=== PATIENT | female | born 1990 | race Caucasian/White ===

== ENCOUNTER 2018-10-31 01:40 | Inpatient (IN) | payer OTHER ==
[2018-10-31] MEDS: ELECTROLYTE-148 SOLN 1,000 ML IV SCH (02:20)
[2018-10-31 02:43] LABS: MONO % 6.3 % (3.8-10.2); PLATELET COUNT 230 K/MM3 (134-434)
[2018-10-31] MEDS ORDERED: FENTANYL/BUPIVACAINE/NS/PF - PCEA - 50 ML DISP.SYRIN EP ONE ×2 (02:47→08:00)
--- NOTE | 2018-10-31 02:52 | HP ---
Past Medical History - Primary Care Physician PCP:: Sesar Rubalcava - Admission Chief Complaint: 28yo P0 with at EGA 38w6d damitted with spontaneous labor and SROM since 12am. History of Present Illness: SROM with clear fluid at 12am on 10/31/2018 Painful ctx from 1am Rh Negative Vaginal GBS negative History Source: Patient, Medical Record Limitations to Obtaining History: No Limitations - Past Medical History RESERVATIONS AGENT: No: Alzheimer's, CVA, Dementia, Migraine, Multiple Sclerosis, Peripheral Neuropathy, Parkinson's, Seizure, Syncope, TIA, Vertigo, Other Cardiovascular: No: AFIB, Aneurysm, Aortic Insufficiency, Aortic Stenosis, CAD, CHF, Deep Vein Thrombosis, HTN, Hyperlipdemia, DC, Mitral Insufficiency, Mitral Stenosis, Murmur, Pulmonary Hypertension, Other Pulmonary: No: Asthma, Bronchitis, Cancer, COPD, O2 Dependent, Pneumonia, Previously Intubated, Pulmonary Embolus, Pulmonary Fibrosis, Sleep Apnea, Other Gastrointestinal: Yes: GERD Hepatobiliary: No: Cirrhosis, Cholelithiasis, Cholecystitis, Choledocholithiasis , Hepatitis A, Hepatitis B, Hepatitis C, Other Renal/: Yes: Renal Calculi ...: 1 ...Para: 0 ... Weeks Gestation by Dates: 38.6 ...EDC by Sono: 11/08/18 Heme/Onc: No: Anemia, B12 Deficiency, Bleeding Disorder, Cancer, Current Chemotherapy, Current Radiation Therapy, Hemochromatosis, Hypercoaguable State, Myeloproliferative Synd, Sickle Cell Disease, Sickle Cell Trait, Thrombocytopenia, Other Infectious Disease: No: AIDS, C-Diff, Herpes Zoster, HIV, MRSA, STD's, Tuberculosis, VREF, Other Psych: No: Addictions, Anxiety, Bipolar, Depression, Panic, Psychosis, Schizophrenia, Other Musculoskeletal: No: Bursitis, Chronic low back pain, Hemiparesis, Hemiplegia, Osteoarthritis, Paraplegia, Other Rheumatology: No: Fibromyalgia, Gout, Lupus, Rheumatoid Arthritis, Sarcoidosis, Vasculitis, Other ENT: No: Allergic Rhinitis, Sinusitis, Other Endocrine: No: Paolo's Disease, Mikki's Disease, Diabetes Insipidus, Diabetes Mellitus, Hyperparathyroidism, Hyperthyroidism, Hypothyroidism, Osteopenia, SIADH, Other Dermatology: No: Basal Cell, Cellulitis, Eczema, Melanoma, Psoriasis, Squamous Cell, Other - Past Surgical History Past Surgical History: Yes: None, Tonsillectomy Hx Myomectomy: No Hx Transabdominal Cerclage: No - Smoking History Have you smoked in the past 12 months: No - Alcohol/Substance Use Hx Alcohol Use: No History of Substance Use: reports: None - Social History Usual Living Arrangement: Yes: With Spouse ADL: Independent Occupation: Teacher History of Recent Travel: No Home Medications - Allergies Allergies/Adverse Reactions: Allergies Allergy/AdvReac Type Severity Reaction Status Date / Time No Known Allergies Allergy Verified 10/31/18 02:16 - Home Medications Home Medications: Ambulatory Orders Vitamins (Sjr) - 1 tab PO DAILY 10/12/18 Doxylamine Succinate [Unisom Sleep Aid] 25 mg PO HS 10/31/18 Family Disease History - Family Disease History Family Disease History: CA: Mother (oral cancer) Review of Systems - Review of Systems Constitutional: reports: Other (labor pain) Eyes: reports: No Symptoms HENT: reports: No Symptoms Neck: reports: No Symptoms Cardiovascular: reports: No Symptoms Respiratory: reports: No Symptoms Gastrointestinal: reports: No Symptoms Genitourinary: reports: No Symptoms Breasts: reports: No Symptoms Reported Musculoskeletal: reports: No Symptoms Integumentary: reports: No Symptoms Neurological: reports: No Symptoms Endocrine: reports: No Symptoms Hematology/Lymphatic: reports: No Symptoms Psychiatric: reports: No Symptoms Pain Intensity: 9 Physical Exam - Maternity Constitutional: Yes: Well Nourished, No Distress, Calm Eyes: Yes: WNL, Conjunctiva Clear HENT: Yes: WNL, Atraumatic, Normocephalic Neck: Yes: WNL, Supple, Trachea Midline Cardiovascular: Yes: WNL, Regular Rate and Rhythm Lungs: Clear to auscultation, Normal air movement Breast(s): Yes: WNL - Abdominal Exam/OB Fundal Height: 39 Number of Fetuses: Single Presentation: Vertex Contractions: Yes Regularity: Regular Intensity: Mod/Strong Monitor Mode: External Heart Rate (range): 125 Heart Rate Location: Midline Category: I Accelerations: Uniform Decelerations: None - Vaginal Exam/OB Vaginal Bleediing: No Speculum Exam: No Dilatation (cm): 3 Effacement (%): 90 Amniotic Membrane Status: Leaking Nitrazine Test: Positive Amniotic Fluid: Yes: Clear Presentation: Vertex/Position Station: -3 - Physical Exam Musculoskeletal: Yes: WNL Extremities: Yes: WNL Edema: No Integumentary: Yes: WNL Deep Tendon Reflex Grade: Normal +2 ...Motor Strength: WNL Psychiatric: Yes: WNL, Alert, Oriented Hemorrhage Risk Assessment - Risk Factors Medium Risk Factors: Yes: None High Risk Factors: Yes: None Risk Score: 1 Risk Level: Medium Risk Imaging - Results Ultrasound: Report Reviewed Assessment/Plan 28yo P0 with at EGA 38w6d damitted with spontaneous labor and SROM since 12am. Fetus with Category I tracing Labor spontaneous, in latent phase. Plan to admit. Labs IV fluids. Pt requested epidural Monitor labor progress.
[2018-10-31 03:10] LABS: BLOOD UREA NITROGEN 15.2 mg/dL (7-18); CALCIUM 9.3 mg/dL (8.5-10.1); CREATININE 0.6 mg/dL (0.55-1.3); POTASSIUM 3.9 mmol/L (3.5-5.1)
[2018-10-31 03:11] LABS: BASO % 0.3 % (0-2.0); EOS % 0.7 % (0-4.5); HEMATOCRIT 37.2 % (32.4-45.2); HEMOGLOBIN 12.9 GM/dL (10.7-15.3); LYMPH % 16.8 % (8-40); MCH 32.1 pg (25.7-33.7); MCHC 34.8 g/dl (32.0-36.0); MEAN CELL VOLUME 92.3 fl (80-96); MEAN PLT VOLUME 9.9 fl (7.5-11.1); NEUT % 75.9 % (42.8-82.8); RBC 4.03 M/mm3 (3.60-5.2); RDW 13.3 % (11.6-15.6); WHITE BLOOD COUNT 14.9 K/mm3 (4.0-10.0)
[2018-10-31 03:25] LABS: INR 0.85 (0.83-1.09)
[2018-10-31 03:28] LABS: ACTIVATED PTT 27.1 SECONDS (25.2-36.5)
[2018-10-31] MEDS: FENTANYL/BUPIVACAINE/NS/PF - PCEA - 50 ML DISP.SYRIN EP SCH (03:30)
[2018-10-31 04:37] VITALS: BMI 29.2
[2018-10-31] MEDS ORDERED: NALOXONE HCL 0.4 MG/ML VIAL IVPUSH PRN (05:15)
[2018-10-31] MEDS ORDERED: LIDO 2%/EPI 1:200000 PRESRVFRE (20 ML SDVIAL) ONE (06:50)
[2018-10-31] MEDS ORDERED: OXYTOCIN 20 UNITS in 0.9% NS 20 UNIT/1,000 ML INFUS.BAG IV ONE (07:15)
[2018-10-31] MEDS: ACETAMINOPHEN 325 MG TABLET (FP) PO PRN ×4 (07:45→20:45)
[2018-10-31] MEDS ORDERED: ACETAMINOPHEN 325 MG TABLET (FP) ONE ×2 (07:45→10:57)
--- NOTE | 2018-10-31 08:24 | PN ---
Ante-Partal Exam - Subjective Subjective: Pt is feeling some pelvic pressure. Vital Signs: Vital Signs Temperature 98.4 F 10/31/18 08:00 Pulse Rate 93 H 10/31/18 07:45 Respiratory Rate 18 10/31/18 07:45 Blood Pressure 133/86 10/31/18 07:45 O2 Sat by Pulse Oximetry (%) 95 10/31/18 07:45 Bleeding: No Headache: No Visual changes: No Right upper quadrant pain: No Pain (scale 1-10): 1 - Contractions Contractions: Yes Intensity: Unaware Monitor Mode: External - Exam during Labor Heart Rate: 120 Variability: Moderate Heart Rate Location: Midline Category: I Monitor Accelerations: Present Monitor Decelerations: None Exam: Vaginal Dilatation (cm): 9.5 Effacement (%): 100 Amniotic Membrane Status: Leaking Amniotic Fluid: Clear Presentation: Vertex Station: +1 - Intrapartum Hemorrhage Risk Medium Risk Factors: None High Risk Factors: None Risk Score: 0 Risk Level: Low Risk - Assessment/Plan Assessment/Plan: 28yo P0 with at EGA 39wks with spontaneous labor. Fetus with Category I tracing. Labor progressed to active phase. Plan to monitor.
[2018-10-31] MEDS ORDERED: LIDOCAINE HCL 1% PRESERVATIVE FREE - 30ML VIAL ONE (09:06)
[2018-10-31] MEDS: OXYTOCIN 20 UNITS in 0.9% NS 20 UNIT/1,000 ML INFUS.BAG IV SCH ×2 (10:00→16:00)
[2018-10-31] MEDS ORDERED: BISACODYL 10 MG SUPP.RECT RC PRN (10:25)
[2018-10-31] MEDS ORDERED: WITCH HAZEL 50% (TUCKS) 40 PAD/JAR PAD TP PRN (10:25)
[2018-10-31] MEDS ORDERED: METHYLERGONOVINE MALEATE 0.2 MG/1 ML AMP IM PRN (10:25)
[2018-10-31] MEDS ORDERED: IBUPROFEN 600 MG TABLET (FP) PO ONE (10:57)
[2018-10-31] MEDS: IBUPROFEN 600 MG TABLET (FP) PO PRN (11:00)
--- NOTE | 2018-10-31 11:05 | PN ---
Delivery - Delivery Vaginal Delivery: No Problems, Spontaneous Type of Anesthesia: Epidural Episiotomy/Laceration: Midline EBL (cc): 300 Delivery, Single - Stages of Labor Date 1st Stage Initiatied: 10/31/18 Time 1st Stage Initiated: 01:00 Date 2nd Stage Initiated: 10/31/18 Time 2nd Stage Initiated: 09:15 Date of Delivery: 10/31/18 Time of Delivery: 09:50 Date Placenta Delivered: 10/31/18 Time Placenta Delivered: 10:00 Placenta: Yes: Spontaneous, Normal Configuration - Condition of Barber Shop Manager/Imaging Tech Present: No Gender: Female Position: Right, OA Total Hours ROM (Hrs/Mins): 10/00 - 1 Minute Total Score: 9 5 Minutes Total Score: 9 - [place] Feeding Plan Initial Plan: Elected not to breastfeed exclusively throughout hospitalization Benefits of Exclusively reinforced: Yes Remarks - Remarks Remarks: Nuchal cord x 1
[2018-10-31] MEDS: oxyCODONE HCL 5 MG TABLET PO PRN ×3 (12:24→20:45)
[2018-10-31] MEDS: BENZOCAINE 20% 57 GM BOTTLE TP PRN (16:36)
[2018-10-31] MEDS: BENZOCAINE 28 GM HEMORRHOIDAL OINTMENT TP PRN (16:36)
[2018-10-31] MEDS: RANITIDINE HCL 150 MG TABLET (FP) PO SCH (21:29)
[2018-10-31] MEDS: SENNOSIDES/DOCUSATE COMBO (SENNA PLUS) TABLET (UD) PO PRN (21:31)
[2018-11-01] MEDS: oxyCODONE HCL 5 MG TABLET PO PRN ×5 (03:01→21:09)
[2018-11-01] MEDS: ACETAMINOPHEN 325 MG TABLET (FP) PO PRN (03:03)
[2018-11-01] MEDS: IBUPROFEN 600 MG TABLET (FP) PO PRN ×4 (08:05→21:08)
[2018-11-01 08:52] LABS: BASO % 0.4 % (0-2.0); EOS % 0.7 % (0-4.5); HEMATOCRIT 34.2 % (32.4-45.2); HEMOGLOBIN 11.9 GM/dL (10.7-15.3); LYMPH % 13.3 % (8-40); MCH 32.2 pg (25.7-33.7); MCHC 34.8 g/dl (32.0-36.0); MEAN CELL VOLUME 92.8 fl (80-96); MEAN PLT VOLUME 9.3 fl (7.5-11.1); MONO % 5.5 % (3.8-10.2); NEUT % 80.1 % (42.8-82.8); PLATELET COUNT 194 K/MM3 (134-434); RBC 3.69 M/mm3 (3.60-5.2); RDW 13.1 % (11.6-15.6); WHITE BLOOD COUNT 13.9 K/mm3 (4.0-10.0)
[2018-11-01] MEDS: ELECTROLYTE-148 SOLN 1,000 ML IV SCH (09:31)
[2018-11-01] MEDS: FENTANYL/BUPIVACAINE/NS/PF - PCEA - 50 ML DISP.SYRIN EP SCH (09:32)
[2018-11-01] MEDS: RANITIDINE HCL 150 MG TABLET (FP) PO SCH ×2 (09:53→21:07)
[2018-11-01] MEDS: PRENATAL VITAMINS W/ FOLIC ACID TABLET (FP) PO SCH (09:53)
[2018-11-01] MEDS: OXYTOCIN 20 UNITS in 0.9% NS 20 UNIT/1,000 ML INFUS.BAG IV SCH (12:09)
[2018-11-01] MEDS: BENZOCAINE 20% 57 GM BOTTLE TP PRN (12:10)
[2018-11-01] MEDS: BENZOCAINE 28 GM HEMORRHOIDAL OINTMENT TP PRN (12:12)
[2018-11-01] MEDS: SENNOSIDES/DOCUSATE COMBO (SENNA PLUS) TABLET (UD) PO PRN (21:07)
--- NOTE | 2018-11-01 21:24 | PN ---
Post Progress Note - Subjective Subjective: Patient without acute complaints. Reports tolerating oral intake without nausea or vomiting. Ambulating without dizziness. Denies fevers or chills. Pain well controlled with oral pain medication. Pumping/breast feeding without issue. Passing flatus Post Day: 1 Type of Delivery: Vital Signs: Vital Signs Temperature 97.8 F 11/01/18 21:10 Pulse Rate 88 11/01/18 21:10 Respiratory Rate 20 11/01/18 21:10 Blood Pressure 135/96 11/01/18 21:10 O2 Sat by Pulse Oximetry (%) 94 L 10/31/18 10:45 Breast Exam: Yes: Soft Uterus: Yes: Fundus Firm, Fundus below umbilicus Abdomen/GI: Yes: Abdomen soft, Passing flatus, Tolerating PO Lochia: Yes: Rubra Lochia, amount: Small Extremities: Yes: Calves non-tender Perineum: Yes: Intact, Episiotomy Activity: Ambulating - Labs Labs: CBC WBC 13.9 K/mm3 (4.0-10.0) H 11/01/18 08:10 RBC 3.69 M/mm3 (3.60-5.2) 11/01/18 08:10 Hgb 11.9 GM/dL (10.7-15.3) 11/01/18 08:10 Hct 34.2 % (32.4-45.2) 11/01/18 08:10 MCV 92.8 fl (80-96) 11/01/18 08:10 MCH 32.2 pg (25.7-33.7) 11/01/18 08:10 MCHC 34.8 g/dl (32.0-36.0) 11/01/18 08:10 RDW 13.1 % (11.6-15.6) 11/01/18 08:10 Plt Count 194 K/MM3 (134-434) 11/01/18 08:10 MPV 9.3 fl (7.5-11.1) 11/01/18 08:10 Absolute Neuts (auto) 11.2 K/mm3 (1.5-8.0) H 11/01/18 08:10 Neutrophils % 80.1 % (42.8-82.8) 11/01/18 08:10 Lymphocytes % 13.3 % (8-40) D 11/01/18 08:10 Monocytes % 5.5 % (3.8-10.2) 11/01/18 08:10 Eosinophils % 0.7 % (0-4.5) 11/01/18 08:10 Basophils % 0.4 % (0-2.0) 11/01/18 08:10 Nucleated RBC % 0 % (0-0) 11/01/18 08:10 Assessment/Plan 28yo P1 s/p , doing well stable, afebrile. Asymptomatic for anemia. care instructions reviewed. Continue routine care. Ambulation encouraged Discharge instruction reviewed.
--- NOTE | 2018-11-01 21:26 | DS ---
Physical Exam-SILK SCREEN PRINTER Vital Signs: Vital Signs Temperature 97.8 F 11/01/18 21:10 Pulse Rate 88 11/01/18 21:10 Respiratory Rate 20 11/01/18 21:10 Blood Pressure 135/96 11/01/18 21:10 O2 Sat by Pulse Oximetry (%) 94 L 10/31/18 10:45 Constitutional: Yes: Well Nourished, No Distress, Calm Eyes: Yes: WNL, Conjunctiva Clear HENT: Yes: WNL, Atraumatic, Normocephalic Neck: Yes: WNL, Supple, Trachea Midline Cardiovascular: Yes: WNL, Regular Rate and Rhythm Respiratory: Yes: WNL, Regular, CTA Bilaterally Gastrointestinal: Yes: WNL, Normal Bowel Sounds, Soft ...Rectal Exam: Yes: Deferred Renal/: Yes: WNL ....Post : Yes: Uterus firm, Uterus non-tender, Slight lochia rubra Breast(s): Yes: WNL Musculoskeletal: Yes: WNL Extremities: Yes: WNL Edema: Yes Edema: LLE: Trace, RLE: Trace Integumentary: Yes: WNL Neurological: Yes: WNL, Alert, Oriented ...Motor Strength: WNL Psychiatric: Yes: WNL, Alert, Oriented Labs: CBC, BMP 11/01/18 08:10 10/31/18 02:30 Delivery - Delivery Vaginal Delivery: No Problems, Spontaneous Type of Anesthesia: Epidural Episiotomy/Laceration: Midline EBL (cc): 300 Delivery, Single - Stages of Labor Date 1st Stage Initiatied: 10/31/18 Time 1st Stage Initiated: 01:00 Date 2nd Stage Initiated: 10/31/18 Time 2nd Stage Initiated: 09:15 Date of Delivery: 10/31/18 Time of Delivery: 09:50 Time Placenta Delivered: 10:00 Placenta: Yes: Spontaneous, Normal Configuration - Condition of Extruder Tender/Road Mender Present: No Infant Gender: Female Weight: 2.722 kg Position: Right, OA Total Hours ROM (Hrs/Mins): 9 HRS - 1 Minute Total Score: 9 5 Minutes Total Score: 9 - [place] Feeding Plan Initial Plan: Elected not to breastfeed exclusively throughout hospitalization Benefits of Exclusively reinforced: Yes Remarks - Remarks Remarks: Nuchal cord x 1 Discharge Summary Reason For Visit: ADMIT LABOR Procedures: Principal: Other Procedures: Repair of midline episiotomy Hospital Course: Normal recovery Condition: Good - Instructions Diet, Activity, Other Instructions: Physical activity Resume your normal everyday activity as tolerated no heavy lifting or exercise until seen by your surgeon. You may walk unlimited benson of and climb stairs. You may resume driving the car when you feel safe and comfortable behind the wheel. No sexual activity as instructed. Wound care If you have a bandage, leave it on, and keep dry for 48-72 hours. After that time discard the outer bandage. If they are tapes on the skin under the out of bandage leave them in place. They will peel off in the next 7 to 10 days. Do Not Peel them off. You may shower the day after surgery. If there are tapes present on the skin, you may shower over them. Diet There are no dietary restrictions. Eat healthy, high-fiber foods. Drink 6 to 8 glasses of liquid each day. This will assist in keeping your bowels are regular. Pain management You may take Tylenol or acetaminophen or Ibuprofen (for example, Motrin, Advil etc.) from my pain prescription medication is ordered should be taken as prescribed for moderate to severe pain. Call MD for any of the following: Severe pain not relieved by medication Fever of 101 or higher Excessive bleeding or drainage on dressing Inability to urinate Referrals: Sesar Rubalcava MD [Staff Physician] - Disposition: HOME - Home Medications Comprehensive Discharge Medication List: Ambulatory Orders Vitamins (Sjr) - 1 tab PO DAILY 10/12/18 Doxylamine Succinate [Unisom Sleep Aid] 25 mg PO HS 10/31/18
[2018-11-02] MEDS: oxyCODONE HCL 5 MG TABLET PO PRN ×3 (02:10→11:09)
[2018-11-02] MEDS: IBUPROFEN 600 MG TABLET (FP) PO PRN (02:11)
[2018-11-02] MEDS: ACETAMINOPHEN 325 MG TABLET (FP) PO PRN ×2 (06:39→12:08)
--- NOTE | 2018-11-02 08:28 | PN ---
Post Progress Note - Subjective Subjective: Pt w/o complaints. Post Day: 2 Type of Delivery: Vital Signs: Vital Signs Temperature 97.8 F 11/01/18 21:10 Pulse Rate 88 11/01/18 21:10 Respiratory Rate 20 11/01/18 21:10 Blood Pressure 135/96 11/01/18 21:10 O2 Sat by Pulse Oximetry (%) 94 L 10/31/18 10:45 Breast Exam: Yes: Soft Uterus: Yes: Fundus Firm, Fundus below umbilicus, Non-tender Abdomen/GI: Yes: Abdomen soft Lochia: Yes: Rubra Lochia, amount: Small Extremities: Yes: Calves non-tender Perineum: Yes: Intact, Episiotomy Activity: Ambulating - Labs Labs: CBC WBC 13.9 K/mm3 (4.0-10.0) H 11/01/18 08:10 RBC 3.69 M/mm3 (3.60-5.2) 11/01/18 08:10 Hgb 11.9 GM/dL (10.7-15.3) 11/01/18 08:10 Hct 34.2 % (32.4-45.2) 11/01/18 08:10 MCV 92.8 fl (80-96) 11/01/18 08:10 MCH 32.2 pg (25.7-33.7) 11/01/18 08:10 MCHC 34.8 g/dl (32.0-36.0) 11/01/18 08:10 RDW 13.1 % (11.6-15.6) 11/01/18 08:10 Plt Count 194 K/MM3 (134-434) 11/01/18 08:10 MPV 9.3 fl (7.5-11.1) 11/01/18 08:10 Absolute Neuts (auto) 11.2 K/mm3 (1.5-8.0) H 11/01/18 08:10 Neutrophils % 80.1 % (42.8-82.8) 11/01/18 08:10 Lymphocytes % 13.3 % (8-40) D 11/01/18 08:10 Monocytes % 5.5 % (3.8-10.2) 11/01/18 08:10 Eosinophils % 0.7 % (0-4.5) 11/01/18 08:10 Basophils % 0.4 % (0-2.0) 11/01/18 08:10 Nucleated RBC % 0 % (0-0) 11/01/18 08:10 Assessment/Plan 28yo P1 s/p , doing well stable, afebrile. Asymptomatic for anemia. care instructions reviewed. Continue routine care. Ambulation encouraged. A few mildly elevated BP's noted. No sx's of PEC. Plan to hold off on meds. Discharge instruction reviewed. F/u in office 1 wk for BP check.
[2018-11-02] MEDS: BENZOCAINE 20% 57 GM BOTTLE TP PRN (09:46)
[2018-11-02] MEDS: BENZOCAINE 28 GM HEMORRHOIDAL OINTMENT TP PRN (09:46)
[2018-11-02] MEDS: RANITIDINE HCL 150 MG TABLET (FP) PO SCH (09:47)
[2018-11-02] MEDS: PRENATAL VITAMINS W/ FOLIC ACID TABLET (FP) PO SCH (09:47)
[2018-11-02 13:41] VITALS: TEMP 98.4
[2018-11-02 13:42] VITALS: BP 135/76; PULSE 73
== END 2018-11-02 12:15 | disposition home or self-care (01) | DRG 807 ==
LOC: JLDR 01:40 → J3W 11:55
PROVIDERS: ADMIT Obstetrics & Gynecology; ATTEND Obstetrics & Gynecology
PROC: 0W8NXZZ Division of Female Perineum, External Approach (ICD-10-PCS; principal; 2018-10-31)
PROC: 10E0XZZ Delivery of Products of Conception, External Approach (ICD-10-PCS; 2018-10-31)
DX: O69.81X0 Labor and delivery complicated by cord around neck, without compression, not applicable or unspecified (principal); Z37.0 Single live birth; O99.02 Anemia complicating childbirth; D64.9 Anemia, unspecified; Z3A.38 38 weeks gestation of pregnancy
CPT/HCPCS: 36415; 59409; 80048; 85025; 85461; 85610; 85730; 86593; 86850; 86870; 86900; 86901; 86902; 86999; 87389

== ENCOUNTER 2018-11-04 19:40 | Emergency (ER) | payer OTHER ==
--- NOTE | 2018-11-04 19:47 | PDOC ---
Rapid Medical Evaluation Time Seen by Provider: 11/04/18 19:45 Medical Evaluation: Allergies Allergy/AdvReac Type Severity Reaction Status Date / Time No Known Allergies Allergy Verified 10/31/18 02:16 11/04/18 19:45 HPI: BARCENAS after epidural PE: No gross deficits ORDERS: Labs Discharge Disposition - Diagnosis Headache - Referrals - Patient Instructions - Post Discharge Activity
[2018-11-04 19:57] VITALS: BMI 26.6
[2018-11-04 21:21] LABS: INR 0.91 (0.83-1.09); PROTHROMBIN TIME (PATIENT) 10.7 SEC (9.7-13.0)
--- NOTE | 2018-11-04 21:21 | PDOC ---
History of Present Illness - General Chief Complaint: Migraine Headache Stated Complaint: BLURRY VISION Time Seen by Provider: 11/04/18 19:45 History Source: Patient Exam Limitations: No Limitations - History of Present Illness Initial Comments: 11/04/18 21:52 28yo F with no significant PMH presenting to ED with complaints of headache x3d. Patient recently gave vaginally 4d ago and received epidural. Per Dr. Barnhart (in ER), anesthesiologist accidentally poked through dura with 17g needle. Patient says the headache is a constant throbbing starting from the back of her neck to the front of the head with neck stiffness on the L side. Also endorses blurry vision of the L eye. Headache is worse when she is standing and walking and lessened when she is laying down. Denies fever, chills , dizziness, lightheadedness, numbness/tingling, weakness, n/v/d, abdominal pain , falls. She is . She had been taking Percocet and drinking water without relief. Past History - Past Medical History Allergies/Adverse Reactions: Allergies Allergy/AdvReac Type Severity Reaction Status Date / Time No Known Allergies Allergy Verified 11/04/18 19:50 Home Medications: Ambulatory Orders Vitamins (Sjr) - 1 tab PO DAILY 10/12/18 Doxylamine Succinate [Unisom Sleep Aid] 25 mg PO HS 10/31/18 Oxycodone HCl/Acetaminophen [Percocet 5-325 mg Tablet -] 1 - 2 tab PO Q6H PRN # 20 tab MDD 8 11/02/18 Asthma: No Cancer: No Cardiac Disorders: No COPD: No Diabetes: No HTN: No Seizures: No Thyroid Disease: No - Suicide/Smoking/Psychosocial Hx Smoking History: Never smoked Have you smoked in the past 12 months: No Information on smoking cessation initiated: No Hx Alcohol Use: No Drug/Substance Use Hx: No Hx Substance Use Treatment: No Review of Systems - Review of Systems Constitutional: No: Symptoms Reported HEENTM: Yes: Blurred Vision Respiratory: No: Symptoms reported Cardiac (ROS): No: Symptoms Reported ABD/GI: No: Symptoms Reported : No: Symptoms Reported Musculoskeletal: Yes: Neck Pain Integumentary: No: Symptoms Reported Neurological: Yes: Headache. No: Numbness, Tingling, Tremors, Weakness, Unsteady Gait *Physical Exam - Vital Signs Last Vital Signs Temp Pulse Resp BP Pulse Ox 97.9 F 82 17 139/91 100 11/04/18 19:47 11/04/18 19:47 11/04/18 19:47 11/04/18 19:47 11/04/18 19:47 - Physical Exam General Appearance: Yes: Nourished, Appropriately Dressed. No: Apparent Distress HEENT: positive: EOMI, DOMINGA Neck: positive: Trachea midline, Supple Respiratory/Chest: positive: Lungs Clear, Normal Breath Sounds. negative: Chest Tender Cardiovascular: positive: Regular Rhythm, Regular Rate. negative: S1, S2, Edema , JVD Vascular Pulses: Dorsalis-Pedis (R): 2+, Doralis-Pedis (L): 2+ Gastrointestinal/Abdominal: positive: Normal Bowel Sounds, Soft. negative: Tender Musculoskeletal: negative: CVA Tenderness Extremity: positive: Normal Capillary Refill, Pelvis Stable. negative: Swelling , Calf Tenderness Integumentary: positive: Normal Color, Dry, Warm Neurologic: positive: validation software facilitator II-XII NML intact, Fully Oriented, Alert, Normal Response, Motor Strength / ED Treatment Course - LABORATORY CBC & Chemistry Diagram: 11/04/18 20:33 11/04/18 20:33 Medical Decision Making - Medical Decision Making 11/04/18 22:00 28yo F with no significant PMH presenting to ED with complaints of headache x3d. Patient recently gave vaginally 4d ago and received epidural. Per Dr. Barnhart (in ER), anesthesiologist accidentally poked through dura with 17g needle. Patient says the headache is a constant throbbing starting from the back of her neck to the front of the head with neck stiffness on the L side. Also endorses blurry vision of the L eye. Headache is worse when she is standing and walking and lessened when she is laying down. Denies fever, chills , dizziness, lightheadedness, numbness/tingling, weakness, n/v/d, abdominal pain , falls. She is . She had been taking Percocet and drinking water without relief. Vitals: wnl PE: normal, photophobia. PDPH. low suspicion for meningitis given negative meningeal signs, no fever, no ams. Anesthesia is placing blood patch. pt layed flat for 1.5 hours. head of bed raised slowly. pt states that dobson was 8/ 10 now 6/10. however neck stiffness adn blurry vision is resolved. appears well, low suspicion for meningitis. giving tylenol, fluids and reglan. pt feeling better, is ambulatory, no headache, no stiffness, no blurry vision. safe for dc home. given return precautions. *DC/Admit/Observation/Transfer Diagnosis at time of Disposition: Post-dural puncture headache - Discharge Dispostion Disposition: HOME Condition at time of disposition: Improved Decision to Admit order: No - Referrals Referrals: Jaquan Thorne [Primary Care Provider] - - Patient Instructions Printed Discharge Instructions: DI for Post-Spinal Puncture Headache Additional Instructions: You were seen in the emergency room today for headache. This is likely a headache from the epidural. You can take Tylenol for the pain as needed. Do not lift heavy items or strain. Drink plenty of fluids and stay hydrated Come back to the emergency room if pain gets worse, you have fever, you have changes in vision, you have numbness/tingling or weakness or if any new, worsening, or concerning symptoms develop. Thank you - Post Discharge Activity
[2018-11-04 21:23] LABS: BASO % 0.5 % (0-2.0); HEMATOCRIT 36.9 % (32.4-45.2); HEMOGLOBIN 12.6 GM/dL (10.7-15.3); LYMPH % 17.8 % (8-40); MCH 31.6 pg (25.7-33.7); MCHC 34.2 g/dl (32.0-36.0); MEAN CELL VOLUME 92.4 fl (80-96); MEAN PLT VOLUME 8.5 fl (7.5-11.1); MONO % 4.7 % (3.8-10.2); PLATELET COUNT 326 K/MM3 (134-434); RDW 13.2 % (11.6-15.6); WHITE BLOOD COUNT 11.7 K/mm3 (4.0-10.0)
[2018-11-04 21:28] LABS: BILIRUBIN,TOTAL 0.2 mg/dL (0.2-1); BLOOD UREA NITROGEN 14.7 mg/dL (7-18); CALCIUM 9.5 mg/dL (8.5-10.1); CREATININE 0.6 mg/dL (0.55-1.3); TOT PROT 7.1 g/dl (6.4-8.2)
--- NOTE | 2018-11-04 22:31 | PDOC ---
Documentation entered by Devante Tirado SCRIBE, acting as scribe for Hakan Camacho MD. Hakan Camacho MD: This documentation has been prepared by the Celestino dykes Daniel, SCRIBE, under my direction and personally reviewed by me in its entirety. I confirm that the documentation accurately reflects all work, treatment, procedures, and medical decision making performed by me. Attending Attestation - Resident Resident Name: Niurka Rucker - ED Attending Attestation I have performed the following: I have examined & evaluated the patient, The case was reviewed & discussed with the resident, I agree w/resident's findings & plan, Exceptions are as noted - HPI HPI: 11/04/18 22:13 The patient is a 28 year old female with no past medical history here today for evaluation of headache. The patient reports that she gave vaginally on friday (10/31/18) and as per the anesthesiologist Dr. Barnhart the patient had an epidural (17 gauge needle) which accidentally punctured the dura. Patient states that her headache began on friday (11/02/18) and describes it as gradual onset, radiating from the base of her neck to the top of her head, worse with standing and walking, and is not relieved with percocet. She also notes left sided blurry vision, which she currently denies. Denies neck stiffness. Pt was advised to return to the hospital for a blood patch in the ED. Patient denies lightheadedness, dizziness, focal weakness/numbness. Denies fever , chills. Denies chest pain, shortness of breath. Denies nausea, vomiting, diarrhea, abdominal pain. Allergies: NKA PCP: Jaquan Thorne - Physicial Exam PE: 11/04/18 22:28 GENERAL: Awake, alert, and fully oriented, in no acute distress HEAD: No signs of trauma EYES: PERRLA, EOMI, sclera anicteric, conjunctiva clear. 20/20 vision OU. VFF. ENT: Oropharynx clear without exudates. Moist mucosa NECK: Normal ROM, supple, no lymphadenopathy, JVD, or masses LUNGS: Breath sounds equal, clear to auscultation bilaterally. No wheezes, and no crackles HEART: Regular rate and rhythm, normal S1 and S2, no murmurs, rubs or gallops ABDOMEN: Soft, nontender, normoactive bowel sounds. No guarding, no rebound. No masses EXTREMITIES: Normal range of motion, no edema. No clubbing or cyanosis. No cords, erythema, or tenderness NEUROLOGICAL: Normal speech, cranial nerves intact, 5/5 strength in all 4 extremities, normal sensation to light touch in all 4 extremities, normal cerebellar exam, normal gait, normal reflexes and tone. No evidence of meningismus with neck or leg flexion SKIN: Warm, Dry, normal turgor, no rashes or lesions noted. 11/05/18 01:10 - Medical Decision Making 11/04/18 22:29 28yo F presents to the ED with post epidural headache Likely 2/2 puncturing of dura using 17G needle Unlikely meningitis as no fever, meningismus, white count, AMS DDx includes tension dobson vs migraine Labs wnl, pt is neurologically intact Anesthesia at the bedside prepping for blood patch BP elevated on arrival to 130s systolic, will rpt 11/05/18 00:08 Headache has improved from an 8 to 6/10 Will give pt 1L IVF, 10mg reglan IVPB, IV tylenol reassess 11/05/18 01:09 Pt reports near complete resolution of headache Denies any other sxs Is well appearing REturn precautions discussed I discussed the physical exam findings, ancillary test results and final diagnoses with the patient. I answered all of the patient's questions. The patient was satisfied with the care received and felt comfortable with the discharge plan and treatment plan. The patient will call their primary care physician within 24 hours to arrange follow-up and will return to the Emergency Department with any new, persistent or worsening symptoms.
--- NOTE | 2018-11-04 23:17 | CONSULT ---
Consult Consult Specialty:: Anesthesiology Reason for Consultation:: Post Dural Puncture Headache - History of Present Illness Chief Complaint: 33 y.o. otherwise healthy woman presents to ED c/o headache. History of Present Illness: She is post- after a spontaneous vaginal delivery X4 days ago with epidural analgesia. Of note, pt. had been informed that upon placement of labor epidural, unintentional dural puncture had occured. She was discharged home on day 2 after delivery and has since had worsening symptoms of headache, blurry vision in left eye and neck pain. She states that the headache is frontal and worse when upright and resolves somewhat when supine. She has been drinking fluids, caffeine and taking oxycodone for pain, which hasn't helped much. - History Source History Provided By: Patient, Significant Other Limitations to Obtaining History: No Limitations - Past Medical History [employer]: Yes: Other (none) Cardio/Vascular: Yes: Other (none) Pulmonary: Yes: Other (none) Gastrointestinal: Yes: GERD Renal/: Yes: Renal Calculi Reproductive: Yes: Other (as HPI) Heme/Onc: Yes: Other (none) Infectious Disease: Yes: Other (none) Musculoskeletal: Yes: Other (scoliosis) Endocrine: Yes: Other (none) - Past Surgical History Past Surgical History: Yes: None, Tonsillectomy - Alcohol/Substance Use Hx Alcohol Use: No History of Substance Use: reports: None - Smoking History Smoking history: Never smoked Have you smoked in the past 12 months: No - Social History ADL: Independent Occupation: Teacher History of Recent Travel: No Home Medications - Allergies Allergies/Adverse Reactions: Allergies Allergy/AdvReac Type Severity Reaction Status Date / Time No Known Allergies Allergy Verified 11/04/18 19:50 - Home Medications Home Medications: Ambulatory Orders Vitamins (Sjr) - 1 tab PO DAILY 10/12/18 Doxylamine Succinate [Unisom Sleep Aid] 25 mg PO HS 10/31/18 Oxycodone HCl/Acetaminophen [Percocet 5-325 mg Tablet -] 1 - 2 tab PO Q6H PRN # 20 tab MDD 8 11/02/18 Family Disease History - Family Disease History Family Disease History: CA: Mother (oral cancer) Review of Systems - Review of Systems Constitutional: reports: No Symptoms Eyes: reports: Blurred Vision (L eye) Neck: reports: Other (pain) Neurological: reports: Headache Physical Exam Vital Signs: Vital Signs Temperature 97.9 F 11/04/18 19:47 Pulse Rate 82 11/04/18 19:47 Respiratory Rate 17 11/04/18 19:47 Blood Pressure 139/91 11/04/18 19:47 O2 Sat by Pulse Oximetry (%) 100 11/04/18 19:47 Constitutional: Yes: Well Nourished, No Distress Eyes: Yes: WNL HENT: Yes: WNL Neck: Yes: WNL Cardiovascular: Yes: WNL Respiratory: Yes: WNL Labs: CBC, BMP 11/04/18 20:33 11/04/18 20:33 Problem List - Problems (1) Post-dural puncture headache Code(s): G97.1 - OTHER REACTION TO SPINAL AND LUMBAR PUNCTURE Assessment/Plan Discussed post-dural puncture headache with pt. and her . I presented options of continued conservative treatment with caffeine, fluids and PO meds vs. epidural blood patch. She agrees to proceed with blood patch. I reviewed procedure and discussed risks/benefits. Consent obtained and is in pt. chart. Please see anesthesia record on pt's chart for blood patch procedure note. Upon completion of procedure, I informed the pt. as well as Dr. Camacho that she should lay flat for the next 1-1.5 hours. After this time, she will sit-up with assistance; if symptoms improved, pt. may be discharged at the discretion of the attending ED physician and follow with her own physician as an outpatient. Thank you for this consult.
[2018-11-05 00:15] VITALS: BP 131/86; PULSE 86; TEMP 98.2
[2018-11-05] MEDS ORDERED: SODIUM CHLORIDE 1,000 ML IV STA (00:21)
[2018-11-05] MEDS ORDERED: ACETAMINOPHEN 1000 MG/100 ML VIAL (NON FORMULARY) IVPB ONE (00:21)
[2018-11-05] MEDS ORDERED: METOCLOPRAMIDE HCL INJECTION 10 MG/2 ML VIAL IVPB ONE (00:22)
[2018-11-05] MEDS ORDERED: ACETAMINOPHEN INJECTION 100 ML IVPB ONE (00:24)
[2018-11-05] MEDS ORDERED: METOCLOPRAMIDE HCL INJECTION 10 MG/2 ML VIAL ONE (00:25)
== END 2018-11-05 01:15 | disposition home or self-care (01) ==
LOC: JER 19:40
PROC: 3E033NZ Introduction of Analgesics, Hypnotics, Sedatives into Peripheral Vein, Percutaneous Approach (ICD-10-PCS; principal; 2018-11-04)
PROC: 3E0337Z Introduction of Electrolytic and Water Balance Substance into Peripheral Vein, Percutaneous Approach (ICD-10-PCS; 2018-11-04)
PROC: 3E033GC Introduction of Other Therapeutic Substance into Peripheral Vein, Percutaneous Approach (ICD-10-PCS; 2018-11-04)
DX: G97.1 Other reaction to spinal and lumbar puncture (principal)
CPT/HCPCS: 36415; 80053; 85025; 85610; 99282-25; J0131; J7030

== ENCOUNTER 2020-02-06 15:45 | Inpatient (IN) | payer OTHER ==
[2020-02-06 17:08] VITALS: BMI 27.6
[2020-02-06 17:58] LABS: BASO % 0.5 % (0-2.0); EOS % 0.8 % (0-4.5); HEMOGLOBIN 12.6 GM/dL (10.7-15.3); LYMPH % 14.9 % (8-40); MCH 31.7 pg (25.7-33.7); MEAN CELL VOLUME 93.4 fl (80-96); MEAN PLT VOLUME 10.4 fl (7.5-11.1); MONO % 8.2 % (3.8-10.2); NEUT % 75.6 % (42.8-82.8); PLATELET COUNT 234 K/MM3 (134-434); RBC 3.97 M/mm3 (3.60-5.2); RDW 12.8 % (11.6-15.6); WHITE BLOOD COUNT 10.9 K/mm3 (4.0-10.0)
[2020-02-06 18:03] LABS: INR 0.82 (0.83-1.09); PROTHROMBIN TIME (PATIENT) 10.2 SEC (9.7-13.0)
[2020-02-06 18:06] LABS: ACTIVATED PTT 24.8 SECONDS (25.2-36.5)
[2020-02-06 18:10] LABS: POTASSIUM 3.7 mmol/L (3.5-5.1)
[2020-02-06 18:12] LABS: BLOOD UREA NITROGEN 15.8 mg/dL (7-18); CALCIUM 8.9 mg/dL (8.5-10.1)
[2020-02-06] MEDS ORDERED: ELECTROLYTE-148 SOLN 1,000 ML IV SCH ×3 (18:15→20:00)
[2020-02-06] MEDS ORDERED: CITRIC ACID/SODIUM CITRATE 30 ML UNIT-DOSE CUP PO ONE (18:15)
[2020-02-06 18:16] LABS: CREATININE 0.5 mg/dL (0.55-1.3)
[2020-02-06] MEDS ORDERED: ELECTROLYTE-148 SOLN 500 ML IV SCH (18:30)
[2020-02-06 19:09] LABS: HIV INTERPRETATION NEGATIVE (NEGATIVE)
[2020-02-06] MEDS ORDERED: BUTORPHANOL TARTRATE 1 MG/ML VIAL IVPB ONE (19:47)
[2020-02-06] MEDS ORDERED: PROMETHAZINE HCL 25 MG/1 ML VIAL IVPUSH ONE (19:47)
[2020-02-06] MEDS ORDERED: BUPIVACAINE HCL/PF 0.25% (2.5MG/ML) 10 ML VIAL ONE (19:58)
[2020-02-06] MEDS ORDERED: LIDO 2%/EPI 1:200000 PRESRVFRE (20 ML SDVIAL) ONE (20:00)
[2020-02-06] MEDS ORDERED: FENTANYL/BUPIVACAINE/NS/PF - PCEA - 50 ML DISP.SYRIN EP ONE (20:04)
[2020-02-06] MEDS ORDERED: PCA PUMP NR ONE (20:04)
[2020-02-06] MEDS ORDERED: NALOXONE HCL 0.4 MG/ML VIAL IVPUSH PRN (20:07)
[2020-02-06] MEDS ORDERED: FENTANYL/BUPIVACAINE/NS/PF - PCEA - 50 ML DISP.SYRIN EP SCH (20:15)
[2020-02-06] MEDS ORDERED: OXYTOCIN 30 UNITS in 0.9% NS 30 UNIT/500 ML INFUS.BAG IVPB SCH (20:30)
[2020-02-06] MEDS ORDERED: PROMETHAZINE HCL 25 MG/1 ML VIAL ONE (21:00)
[2020-02-06] MEDS ORDERED: BUTORPHANOL TARTRATE 1 MG/ML VIAL ONE (21:00)
[2020-02-06] MEDS ORDERED: OXYTOCIN 30 UNITS in 0.9% NS 30 UNIT/500 ML INFUS.BAG IVPB ONE (21:00)
[2020-02-07] MEDS ORDERED: FENTANYL/BUPIVACAINE/NS/PF - PCEA - 50 ML DISP.SYRIN EP ONE (01:48)
[2020-02-07] MEDS ORDERED: LIDO 2%/EPI 1:200000 PRESRVFRE (20 ML SDVIAL) ONE (03:01)
[2020-02-07] MEDS ORDERED: LIDOCAINE HCL 1% PRESERVATIVE FREE - 30ML VIAL ONE (04:20)
[2020-02-07] MEDS ORDERED: OXYTOCIN 20 UNITS in 0.9% NS 20 UNIT/1,000 ML INFUS.BAG IV ONE (04:20)
[2020-02-07 04:24] LABS: RETICULOCYTES 1.72 % (0.5-1.5)
[2020-02-07] MEDS ORDERED: BISACODYL 10 MG SUPP.RECT RC PRN (04:42)
[2020-02-07] MEDS ORDERED: WITCH HAZEL 50% (TUCKS) 40 PAD/JAR PAD TP PRN (04:42)
[2020-02-07] MEDS ORDERED: BENZOCAINE 20% 57 GM BOTTLE TP PRN (04:42)
[2020-02-07] MEDS ORDERED: METHYLERGONOVINE MALEATE 0.2 MG/1 ML AMP IM PRN (04:42)
[2020-02-07] MEDS ORDERED: BENZOCAINE 28 GM HEMORRHOIDAL OINTMENT TP PRN (04:42)
[2020-02-07] MEDS ORDERED: OXYTOCIN 20 UNITS in 0.9% NS 20 UNIT/1,000 ML INFUS.BAG IV SCH (04:45)
[2020-02-07 04:50] LABS: URIC ACID 5.3 mg/dL (2.6-7.2)
[2020-02-07] MEDS ORDERED: ERYTHROMYCIN 0.5% OPHTHALMIC OINTMENT 3.5 GM TUBE OU ONE (06:00)
[2020-02-07] MEDS ORDERED: PHYTONADIONE NEONATAL 1 MG/0.5 ML AMP IM ONE (06:00)
[2020-02-07] MEDS: IBUPROFEN 600 MG TABLET (FP) PO PRN ×3 (06:12→17:19)
[2020-02-07] MEDS: ACETAMINOPHEN 325 MG TABLET (FP) PO PRN ×3 (06:12→17:20)
[2020-02-07] MEDS: PRENATAL VITAMINS W/ FOLIC ACID TABLET (FP) PO SCH (10:04)
[2020-02-07] MEDS ORDERED: ZOLPIDEM TARTRATE 5 MG TABLET PO ONE (17:36)
[2020-02-08] MEDS: ACETAMINOPHEN 325 MG TABLET (FP) PO PRN ×2 (05:18→10:52)
[2020-02-08] MEDS: IBUPROFEN 600 MG TABLET (FP) PO PRN ×2 (05:19→10:53)
[2020-02-08] MEDS ORDERED: oxyCODONE HCL 5 MG TABLET PO ONE (05:45)
[2020-02-08 08:17] LABS: BASO % 0.5 % (0-2.0); EOS % 0.6 % (0-4.5); HEMATOCRIT 34.8 % (32.4-45.2); HEMOGLOBIN 11.7 GM/dL (10.7-15.3); MCH 31.5 pg (25.7-33.7); MCHC 33.6 g/dl (32.0-36.0); MEAN CELL VOLUME 93.8 fl (80-96); MEAN PLT VOLUME 9.4 fl (7.5-11.1); MONO % 4.7 % (3.8-10.2); NEUT % 82.2 % (42.8-82.8); PLATELET COUNT 194 K/MM3 (134-434); RBC 3.72 M/mm3 (3.60-5.2); RDW 13.3 % (11.6-15.6); WHITE BLOOD COUNT 12.9 K/mm3 (4.0-10.0)
[2020-02-08 09:03] VITALS: BP 131/90; PULSE 75; TEMP 98
[2020-02-08] MEDS: PRENATAL VITAMINS W/ FOLIC ACID TABLET (FP) PO SCH (10:53)
[2020-02-08] MEDS ORDERED: SENNOSIDES/DOCUSATE COMBO (SENNA PLUS) TABLET (UD) PO PRN (22:00)
== END 2020-02-08 11:25 | disposition home or self-care (01) | DRG 807 ==
LOC: JLDR 15:45 → J3W 02-07 05:59
PROVIDERS: ADMIT Obstetrics & Gynecology; ATTEND Obstetrics & Gynecology
PROC: 3E033VJ Introduction of Other Hormone into Peripheral Vein, Percutaneous Approach (ICD-10-PCS; 2020-02-06)
PROC: 10E0XZZ Delivery of Products of Conception, External Approach (ICD-10-PCS; principal; 2020-02-07)
DX: O36.5930 Maternal care for other known or suspected poor fetal growth, third trimester, not applicable or unspecified (principal); Z37.0 Single live birth; O99.892 Other specified diseases and conditions complicating childbirth; M41.9 Scoliosis, unspecified; Z3A.38 38 weeks gestation of pregnancy
CPT/HCPCS: 36415; 59409; 80048; 82977; 83010; 84450; 84460; 84550; 85025; 85032; 85045; 85610; 85730; 86780; 86850; 86900; 86901; 86999; 87389; C9803; U0003